=== PATIENT | female | born 1985 | race Hispanic/Latino ===

== ENCOUNTER 2019-06-26 18:09 | Inpatient (IN) | payer OTHER ==
[~2019-06-26] VITALS: Ht 157.5 cm; Wt 74.8 kg
[2019-06-26] MEDS ORDERED: ACETAMINOPHEN 325 MG TAB ONE (18:43)
[2019-06-26 18:56] LABS: APPEARANCE,URINE Clear (CLEAR); BILIRUBIN,URINE Negative (NEGATIVE); COLOR,URINE Yellow (YELLOW); GLUCOSE, URINE (UA) 500 mg/dL (NEGATIVE); KETONES,URINE 15 mg/dL (NEGATIVE); LEUKOCYTE ESTERASE ,URINE Negative (NEGATIVE); NITRATE,URINE Negative (NEGATIVE); OCCULT BLOOD,URINE Negative (NEGATIVE); PROTEIN,URINE Negative (NEGATIVE)
[2019-06-26 18:57] LABS: BASOPHILS % (AUTO) 0.3 % (0.0-5.0); HEMATOCRIT 42.1 % (36-48); LYMPHOCYTES % (AUTO) 2.6 % (21.0-51.0); MEAN CORPUSCULAR HEMOGLOBIN 28.4 pg (27.0-33.0); MEAN CORPUSCULAR HGB CONC 33.5 g/dL (32.0-36.0); MEAN CORPUSCULAR VOLUME 84.9 fL (79-99); MONOCYTES % (AUTO) 3.3 % (3.0-13.0); NEUTROPHILS % (AUTO) 93.8 % (40.0-77.0); PLATELET COUNT (AUTO) 257 K/uL (130-400); RED BLOOD CELL COUNT(AUTO) 4.96 MIL/uL (4.00-5.50); RED CELL DISTRIBUTION WIDTH 12.8 % (11.0-15.5); WHITE BLOOD COUNT (AUTO) 23.1 K/uL (4.8-10.8)
[2019-06-26 18:58] LABS: HCG,QUAL RESULT NEGATIVE (NEGATIVE)
[2019-06-26 19:07] LABS: CREATININE 0.7 mg/dL (0.5-1.5)
[2019-06-26 19:11] LABS: TOTAL PROTEIN, SERUM 8.3 g/dL (6.0-8.3)
[2019-06-26] MEDS ORDERED: SODIUM CHLORIDE 0.9% 1000ML 2,000 ML IV ONE (19:18)
[2019-06-26] MEDS ORDERED: CEFTRIAXONE SODIUM 1 GM ONE (19:18)
[2019-06-26] MEDS ORDERED: SODIUM CHLORIDE 0.9% 50 ML IV ONE (19:19)
[2019-06-26] MEDS ORDERED: IOHEXOL-350 75 ML VIAL IV ONE (19:23)
[2019-06-26] MEDS ORDERED: ONDANSETRON HCL 4 MG/2 ML VIAL ONE (19:32)
[2019-06-26] MEDS ORDERED: MORPHINE SULFATE 2 MG/ML 1ML SYG ONE ×2 (19:33→21:55)
[2019-06-26 21:56] LABS: AMPHET/METH SCREEN,URINE NEGATIVE (NEGATIVE); BARBITURATE SCREEN, URINE NEGATIVE (NEGATIVE); BENZODIAZEPINES SCREEN,URINE NEGATIVE (NEGATIVE); CANNABINOID SCREEN,URINE NEGATIVE (NEGATIVE); COCAINE SCREEN,URINE NEGATIVE (NEGATIVE); OPIATE SCREEN,URINE NEGATIVE (NEGATIVE); PHENCYCLIDINE SCREEN,URINE NEGATIVE (NEGATIVE)
[2019-06-26] MEDS ORDERED: KETOROLAC TROMETHAMINE 15MG/ML ONE (22:11)
[2019-06-26] MEDS: SODIUM CHLORIDE 0.9% 1000ML 1,000 ML IV SCH (23:36)
[2019-06-26] MEDS ORDERED: ONDANSETRON HCL 4 MG/2 ML VIAL IV PRN (23:45)
[2019-06-26] MEDS ORDERED: ACETAMINOPHEN 325 MG TAB PO PRN (23:45)
[2019-06-27] VITALS (7 sets, daily range): BP systolic 101–129; BP diastolic 50–85
[2019-06-27 04:24] LABS: BASOPHILS % (AUTO) 0.3 % (0.0-5.0); HEMATOCRIT 34.2 % (36-48); LYMPHOCYTES % (AUTO) 8.4 % (21.0-51.0); MEAN CORPUSCULAR HEMOGLOBIN 29.3 pg (27.0-33.0); MEAN CORPUSCULAR HGB CONC 34.8 g/dL (32.0-36.0); MEAN CORPUSCULAR VOLUME 84.2 fL (79-99); MONOCYTES % (AUTO) 4.5 % (3.0-13.0); NEUTROPHILS % (AUTO) 86.8 % (40.0-77.0); PLATELET COUNT (AUTO) 248 K/uL (130-400); RED BLOOD CELL COUNT(AUTO) 4.06 MIL/uL (4.00-5.50); RED CELL DISTRIBUTION WIDTH 12.8 % (11.0-15.5); WHITE BLOOD COUNT (AUTO) 14.9 K/uL (4.8-10.8)
[2019-06-27 04:33] LABS: HEMOGLOBIN A1C 6.2 % (4.0-6.0)
[2019-06-27 04:35] LABS: CREATININE 0.6 mg/dL (0.5-1.5); POTASSIUM 3.7 mmol/L (3.5-5.1)
[2019-06-27] MEDS: ACETAMINOPHEN 325 MG TAB PO PRN ×2 (05:24→14:12)
[2019-06-27] MEDS: SODIUM CHLORIDE 0.9% 1000ML 1,000 ML IV SCH ×3 (06:24→20:43)
[2019-06-27] MEDS ORDERED: INSULIN HUMULIN R 100 UNIT/ML 3ML SQ SCH (07:30)
[2019-06-27] MEDS: FAMOTIDINE/PF 20 MG/2 ML VIAL IV SCH ×2 (09:06→20:43)
[2019-06-27] MEDS: CEFTRIAXONE SODIUM 1 GM IV SCH (09:06)
[2019-06-27] MEDS: DOXYCYCLINE 100MG+NS 250ML 250 ML IV SCH ×2 (09:15→20:42)
--- NOTE | 2019-06-27 14:18 | NUR ---
INITIAL ATTEMPTED PT ON THE PHONE, ASKED CM TO COME BACK LATER Addendum: 06/27/19 at 1419 by KATI MARCH RN CM Amended: Links added.
[2019-06-27] MEDS ORDERED: PHARMACY COMMUNICATION MISC SCH (14:30)
[2019-06-27] MEDS: BUTALB/ACETAMINOPHEN/CAFFEINE 1 EACH TABLET PO PRN (15:04)
--- NOTE | 2019-06-27 15:57 | NUR ---
RD Notification Pt with poor appetite. Upon visit Pt reports pain when swallowing caused by previous vomiting (06/26/19). Pt states nausea and vomiting has subsided, but remains with poor appetite, although improving (PO 75%). RD recommend Ensure QD, Pt agrees to try. Pt also with request of soups at mealtimes. Pt monitored labs: Glu 124, A1C 6.2, BUN 6, Ca 8.0, Alb 4.0, Lipase 75. RD to continue to monitor. Please notify RD as additional nutrition concerns arise. Thank you. Addendum: 06/27/19 at [address] RD Amended: Links added.
[2019-06-27] MEDS ORDERED: PROMETHAZINE HCL 25 MG/ML 1ML AMPULE IM SCH ×2 (21:15→22:20)
[2019-06-27] MEDS ORDERED: DIAZEPAM 5 MG TABLET PO SCH (22:20)
[2019-06-28 03:30] VITALS: BP 111/65
[2019-06-28 04:49] LABS: BASOPHILS % (AUTO) 0.3 % (0.0-5.0); EOSINOPHILS % (AUTO) 0.6 % (0.0-8.0); HEMATOCRIT 34.9 % (36-48); LYMPHOCYTES % (AUTO) 24.1 % (21.0-51.0); MEAN CORPUSCULAR HEMOGLOBIN 28.9 pg (27.0-33.0); MEAN CORPUSCULAR HGB CONC 33.7 g/dL (32.0-36.0); MEAN CORPUSCULAR VOLUME 85.5 fL (79-99); MONOCYTES % (AUTO) 6.4 % (3.0-13.0); NEUTROPHILS % (AUTO) 68.6 % (40.0-77.0); PLATELET COUNT (AUTO) 222 K/uL (130-400); RED BLOOD CELL COUNT(AUTO) 4.08 MIL/uL (4.00-5.50); RED CELL DISTRIBUTION WIDTH 12.9 % (11.0-15.5)
[2019-06-28 05:12] LABS: ALBUMIN 2.7 g/dL (3.5-5.0); BILIRUBIN,TOTAL 0.4 mg/dL (0.2-1.0); CREATININE 0.5 mg/dL (0.5-1.5); POTASSIUM 3.4 mmol/L (3.5-5.1); THYROID STIMULATING HORMONE 1.04 uIU/mL (0.36-3.74); TOTAL PROTEIN, SERUM 6.3 g/dL (6.0-8.3)
[2019-06-28] MEDS: SODIUM CHLORIDE 0.9% 1000ML 1,000 ML IV SCH ×3 (06:05→22:16)
[2019-06-28 08:01] VITALS: BP 129/67
[2019-06-28] MEDS ORDERED: POTASSIUM CHLORIDE 10% ELIXIR 20 MEQ/15 ML UDCUP PO PRN (08:15)
[2019-06-28] MEDS ORDERED: LIDOCAINE HCL-MPF 1% 2ML VIAL IVP PRN (08:15)
[2019-06-28] MEDS ORDERED: POTASSIUM CHLORIDE 20MEQ/100ML 100 ML IV PRN (08:15)
[2019-06-28] MEDS: CEFTRIAXONE SODIUM 1 GM IV SCH (08:58)
[2019-06-28] MEDS: FAMOTIDINE/PF 20 MG/2 ML VIAL IV SCH ×2 (08:58→20:07)
[2019-06-28] MEDS: DOXYCYCLINE 100MG+NS 250ML 250 ML IV SCH ×2 (08:59→20:07)
[2019-06-28] MEDS: POTASSIUM CHLORIDE 20 MEQ ERTAB PO PRN ×2 (08:59→12:52)
[2019-06-28 12:07] VITALS: BP 127/75
[2019-06-28 16:00] VITALS: BP 116/68
--- NOTE | 2019-06-28 16:30 | NUR ---
INITIAL Met w patient alone, aao x 3 indp employed, no dme, uninsured, no clinic, no PMD, community resource pkt discussed and advised re [facility], verbalized understanding. dcp home Addendum: 06/28/19 at 1938 by KATI MARCH RN Amended: Links added.
[2019-06-28] MEDS: BUTALB/ACETAMINOPHEN/CAFFEINE 1 EACH TABLET PO PRN (18:30)
[2019-06-28 19:47] VITALS: BP 131/76
[2019-06-28] MEDS ORDERED: DIAZEPAM 5 MG TABLET PO PRN (20:00)
[2019-06-28 23:38] VITALS: BP 107/58
[2019-06-29] MEDS: SODIUM CHLORIDE 0.9% 1000ML 1,000 ML IV SCH (03:52)
[2019-06-29 04:10] VITALS: BP 117/73
[2019-06-29 04:16] LABS: BASOPHILS % (AUTO) 0.4 % (0.0-5.0); EOSINOPHILS % (AUTO) 1.5 % (0.0-8.0); HEMATOCRIT 34.6 % (36-48); MEAN CORPUSCULAR HEMOGLOBIN 29.2 pg (27.0-33.0); MEAN CORPUSCULAR HGB CONC 34.2 g/dL (32.0-36.0); MEAN CORPUSCULAR VOLUME 85.2 fL (79-99); MONOCYTES % (AUTO) 6.3 % (3.0-13.0); NEUTROPHILS % (AUTO) 59.8 % (40.0-77.0); NUCLEATED RED BLOOD CELLS 0.1 % (0.0-0.19); PLATELET COUNT (AUTO) 256 K/uL (130-400); RED BLOOD CELL COUNT(AUTO) 4.07 MIL/uL (4.00-5.50); RED CELL DISTRIBUTION WIDTH 12.7 % (11.0-15.5); WHITE BLOOD COUNT (AUTO) 7.6 K/uL (4.8-10.8)
[2019-06-29 04:34] LABS: ALBUMIN 2.9 g/dL (3.5-5.0); BILIRUBIN,TOTAL 0.3 mg/dL (0.2-1.0); CREATININE 0.6 mg/dL (0.5-1.5); POTASSIUM 3.7 mmol/L (3.5-5.1); TOTAL PROTEIN, SERUM 6.9 g/dL (6.0-8.3)
[2019-06-29 08:00] VITALS: BP 113/64
[2019-06-29] MEDS: DOXYCYCLINE 100MG+NS 250ML 250 ML IV SCH (09:40)
[2019-06-29] MEDS: CEFTRIAXONE SODIUM 1 GM IV SCH (09:45)
[2019-06-29] MEDS: FAMOTIDINE/PF 20 MG/2 ML VIAL IV SCH (09:45)
[2019-06-29] MEDS ORDERED: MELA1TAB28 PO (09:55)
[2019-06-29] MEDS ORDERED: CEPH-578 PO (09:55)
[2019-06-29] MEDS ORDERED: DOXY100C2 PO (09:55)
--- NOTE | 2019-06-29 11:47 | NUR ---
cm note met with patient and provided information and coupons on medication assist. and clinics and md in the area encouranged her on importance of md followup. states she will followup with meds and md.
[2019-06-29 12:00] VITALS: BP 131/79
--- NOTE | 2019-06-29 13:40 | NUR ---
DISCHARGE DISCHARGE TEACHING DONE WITH PATIENT USING TEACHBACK METHOD, VERBALIZED UNDERSTANDING. NO NOTED SOB OR DISTRESS. PT AWARE OF NEED TO FIND PCP, LIST OF PCP IN AREA GIVEN TO PATIENT. NEW MEDICATION ADMINISTRATION TEACHING DONE WITH PATIENT, VERBALIZED UNDERSTANDING. IV REMOVED, CATH TIP INTACT. PENDING TO BE TRANSFERRED OUT VIA PRIVATE VEHICLE.
== END 2019-06-29 13:50 | disposition home or self-care (01) | DRG 872 ==
LOC: EDH 18:09 → EDHIP 18:10 → 4AH 23:06
PROVIDERS: ADMIT Internal Medicine; ATTEND Internal Medicine
DX: A41.9 Sepsis, unspecified organism (principal); N75.0 Cyst of Bartholin's gland; M79.10 Myalgia, unspecified site; Z88.6 Allergy status to analgesic agent
CPT/HCPCS: 36415; 71046; 74177; 80048; 80053; 80305; 81003; 81025; 82550; 82948; 83036; 83605; 83690; 84443; 85025; 86308; 87040; 87486; 87797; 87804; 87880; G0378; J0696; J1885; J2405; J2550; J3490; J7030; Q9967